=== PATIENT | female | born 1980 | race Caucasian/White ===

== ENCOUNTER 2017-02-26 14:06 | Emergency (ER) | payer MEDICAID ==
[~2017-02-26] VITALS: Ht 162.6 cm; Wt 71.2 kg
[2017-02-26 14:16] VITALS: BP 122/87
[2017-02-26] MEDS ORDERED: Dexamethasone 4mg/ml vial IM ONE (15:00)
[2017-02-26] MEDS ORDERED: Acetaminophen 500mg (ES) tab ORAL ONE (15:00)
[2017-02-26] MEDS ORDERED: AMOXICILLIN500 MG ORAL (15:10)
[2017-02-26] MEDS ORDERED: TYLENOL EXTRA500 MG ORAL (15:10)
[2017-02-26 15:15] VITALS: BP 121/86
--- NOTE | 2017-02-26 16:21 | Emergency Room Report ---
History of Present Illness General Chief Complaint: Fever Source: Patient Present Illness HPI 36-year-old female presents ED for evaluation. States that she's been having coughing chills sore throat for last 2 days. Patient has temperature 100.9 in triage. States pain is throbbing, 4/10, nonradiating. States cough is dry. Denies chest pain or shortness of breath. Denies sick contacts or recent travel. No other aggravating relieving factors. Denies any other associated symptoms Allergies: Coded Allergies: No Known Allergies (Unverified , 02/26/17) Patient History Past Medical History: none Past Surgical History: none Pertinent Family History: none Social History: Denies: smoking, alcohol use, drug use Last Menstrual Period: Current Now: No Immunizations: UTD Reviewed Nursing Documentation: PMH: Agreed, PSxH: Agreed Nursing Documentation-PMH Past Medical History: No Stated History Review of Systems All Other Systems: negative except mentioned in HPI Physical Exam Vital Signs Date Time Temp Pulse Resp B/P (MAP) Pulse Ox O2 Delivery O2 Flow Rate FiO2 02/26/17 14:16 100.9 118 22 122/87 97 Room Air Sp02 EP Interpretation: reviewed, normal General Appearance: no apparent distress, alert, GCS 15, non-toxic Head: normocephalic, atraumatic Eyes: bilateral eye normal inspection, bilateral eye PERRL ENT: hearing grossly normal, no angioedema, normal voice, TMs + canals normal, pharyngeal erythema Neck: full range of motion, supple/symm/no masses Respiratory: chest non-tender, lungs clear, normal breath sounds, speaking full sentences Cardiovascular #1: regular rate, rhythm, no edema Cardiovascular #2: 2+ carotid (R), 2+ carotid (L), 2+ radial (R), 2+ radial (L) , 2+ dorsalis pedis (R), 2+ dorsalis pedis (L) Gastrointestinal: normal bowel sounds, non tender, soft, non-distended, no guarding, no rebound Rectal: deferred Genitourinary: normal inspection, no CVA tenderness Musculoskeletal: back normal, gait/station normal, normal range of motion, non- tender Neurologic: alert, oriented x3, responsive, motor strength/tone normal, sensory intact, speech normal Psychiatric: judgement/insight normal, memory normal, mood/affect normal, no suicidal/homicidal ideation Reflexes: 3+ bicep (R), 3+ bicep (L), 3+ tricep (R), 3+ tricep (L), 3+ knee (R) , 3+ knee (L) Skin: normal color, no rash, warm/dry, well hydrated Lymphatic: no adenopathy Medical Decision Making Diagnostic Impression: Primary Impression: Pharyngitis Qualified Codes: J02.9 - Acute pharyngitis, unspecified ER Course Hospital Course 36-year-old female presents to ED complaining of sore throat + fever + cough Differential diagnoses include: URI, pharyngitis, otitis media Clinical course Patient placed on stretcher. After initial history, physical exam reveals female in no acute distress. Bilateral TM unremarkable. There is pharyngeal erythema w/o tonsillar exudates. No lymphadenopathy. Clinical findings consistent with pharyngitis. given tylenol and decadron in ED Diagnosis - pharyngitis Stable and discharged home with prescriptions for Tylenol, amoxicillin. Instructed to followup with PMD. return to ED if symptoms recur or worsen Last Vital Signs Date Time Temp Pulse Resp B/P (MAP) Pulse Ox O2 Delivery O2 Flow Rate FiO2 02/26/17 15:18 99.1 98 20 121/86 97 Room Air Status: improved Disposition: HOME, SELF-CARE Condition: Stable Scripts Acetaminophen* (TYLENOL EXTRA STRENGTH*) 500 Mg Tablet 500 MG ORAL Q8H Y for Prn Headache/Temp > 101, #30 TAB 0 Refills Prov: KAREN GARVEY M.D. 02/26/17 Amoxicillin* (AMOXIL*) 500 Mg Capsule 500 MG ORAL THREE TIMES A DAY, #21 CAP Prov: KAREN GARVEY M.D. 02/26/17 Referrals: [facility],REFERRING (PCP) Patient Instructions: Pharyngitis, [id number] KAREN GARVEY M.D. Feb 26, 2017 16:21
== END 2017-02-26 15:15 | disposition home or self-care (01) ==
LOC: EMR 14:30
DX: J02.9 Acute pharyngitis, unspecified (principal)
CPT/HCPCS: 96372; 99284; J1100

== ENCOUNTER 2017-02-28 08:16 | Emergency (ER) | payer MEDICAID ==
[~2017-02-28] VITALS: Ht 162.6 cm; Wt 70.8 kg
[~2017-02-28 08:16] MED LIST: AMOXICILLIN500 MG ORAL; TYLENOL EXTRA500 MG ORAL
[2017-02-28] MEDS ORDERED: TESSALON PERLE100 MG ORAL (08:44)
[2017-02-28] MEDS ORDERED: IBUPROFEN600 MG ORAL (08:44)
--- NOTE | 2017-02-28 08:49 | Emergency Room Report ---
History of Present Illness General Chief Complaint: Upper Respiratory Illness Source: Patient Present Illness HPI 36-year-old female with no significant past medical history p/w cough, runny nose for 5 days. Pt states cough is productive, with clear non bloody sputum. + fever no chills. +runny nose +myalgias. No sick contacts or recent travel. Patient does not smoke. Patient states that she still been able to eat and drink without any issue Patient was given amoxicillin by her doctor 3 days ago and patient states that it is not helping her cough Allergies: Coded Allergies: No Known Allergies (Unverified , 02/26/17) Patient History Past Medical History: see triage record Past Surgical History: none Pertinent Family History: none Last Menstrual Period: -24 Now: No Reviewed Nursing Documentation: PMH: Agreed, PSxH: Agreed Nursing Documentation-PMH Past Medical History: No Stated History Review of Systems All Other Systems: negative except mentioned in HPI Physical Exam Vital Signs Date Time Temp Pulse Resp B/P (MAP) Pulse Ox O2 Delivery O2 Flow Rate FiO2 02/28/17 08:26 98.4 98 20 113/81 97 Room Air Sp02 EP Interpretation: reviewed, normal General Appearance: alert, GCS 15, non-toxic, mild distress, other - Appears tired, however not short of breath, speaking in complete sentences without any issue Head: normocephalic, atraumatic Eyes: bilateral eye normal inspection, bilateral eye PERRL, bilateral eye EOMI ENT: normal ENT inspection, normal pharynx, normal voice, moist mucus membranes Neck: normal inspection, full range of motion, supple Respiratory: normal inspection, lungs clear, normal breath sounds, no respiratory distress, no retraction, no wheezing, speaking full sentences, chest symmetrical Cardiovascular #1: normal inspection, regular rate, rhythm, no edema, normal capillary refill Cardiovascular #2: 2+ radial (R), 2+ radial (L) Gastrointestinal: normal inspection, non tender, soft, non-distended, no guarding Musculoskeletal: normal inspection, back normal, normal range of motion, non- tender Neurologic: normal inspection, alert, oriented x3, responsive, motor strength/ tone normal, sensory intact, normal gait, speech normal Psychiatric: normal inspection, judgement/insight normal, memory normal Skin: normal inspection, normal color, no rash, warm/dry, well hydrated, normal turgor Medical Decision Making Diagnostic Impression: Primary Impression: Upper respiratory infection ER Course 36-year-old female p/w cough and runny nose for 5 days. DDX: Viral URI Plan: None in the emergency room, patient appears well-hydrated, vital signs are normal, lung exam is benign, and patient is not in respiratory distress ER course: Patient remains nontoxic, not in resp distress. Disposition: Patient is to be discharged home with a prescription of Tessalon Perles and Motrin. Patient instructed to continue to take the antibiotic that was prescribed by her doctor. Strict precautions discussed with patient on when to return to the emergency room including hemoptysis, high fevers, chills, SOB, chest pain which may indicate severe illness. Patient is to follow up with their primary care doctor within 5 days. Patient agrees with plan. Please note that this Emergency Department Report was dictated using [employer] technology software, occasionally this can lead to erroneous entry secondary to interpretation by the dictation equipment Last Vital Signs Date Time Temp Pulse Resp B/P (MAP) Pulse Ox O2 Delivery O2 Flow Rate FiO2 02/28/17 08:26 98.4 98 20 113/81 97 Room Air Disposition: HOME, SELF-CARE Condition: Stable Scripts Ibuprofen* (MOTRIN*) 600 Mg Tablet 600 MG ORAL Q8H Y for For Pain, #30 TAB 0 Refills Prov: Aster Hdez M.D. 02/28/17 Benzonatate* (TESSALON PERLE*) 100 Mg Capsule 100 MG ORAL THREE TIMES A DAY for 7 Days, #21 PERLE 0 Refills Prov: Aster Hdez M.D. 02/28/17 Patient Instructions: Upper Respiratory Infection, Adult Additional Instructions: please follow up with your doctor in 1 week Aster Hdez M.D. Feb 28, 2017 08:49
[2017-02-28 08:58] VITALS: BP 117/75
[2017-02-28 09:47] VITALS: BP 117/75
== END 2017-02-28 09:47 | disposition home or self-care (01) ==
LOC: EMR 08:51
DX: J06.9 Acute upper respiratory infection, unspecified (principal)
CPT/HCPCS: 99284

== ENCOUNTER 2017-09-03 06:32 | Emergency (ER) | payer MEDICAID ==
[~2017-09-03] VITALS: Ht 162.6 cm; Wt 73.9 kg
[~2017-09-03 06:32] MED LIST changes: +IBUPROFEN600 MG ORAL; +TESSALON PERLE100 MG ORAL
[2017-09-03] MEDS ORDERED: GABAPENTIN100 MG ORAL (06:42)
[2017-09-03 06:52] VITALS: BP 123/86
--- NOTE | 2017-09-03 06:54 | Emergency Room Report ---
History of Present Illness General Chief Complaint: Headache Source: Patient Present Illness HPI Patient is a 37-year-old female presented after increased headache. Patient reports having increased frequency of headaches. Patient reports having some associated throbbing sensation. She reports having pain to the left side of her head and unilaterally. She denies prior radiographic imaging. She denies any neck pain or stiffness. Patient gradual onset of headache.The patient denies being . Allergies: Coded Allergies: No Known Allergies (Unverified , 09/03/17) Patient History Past Medical History: see triage record Last Menstrual Period: 08/16/17 Now: No Reviewed Nursing Documentation: PMH: Agreed; PSxH: Agreed Nursing Documentation-PMH Past Medical History: No Stated History Review of Systems All Other Systems: negative except mentioned in HPI Physical Exam Vital Signs Date Time Temp Pulse Resp B/P (MAP) Pulse Ox O2 Delivery O2 Flow Rate FiO2 09/03/17 06:37 98.0 70 16 123/86 95 Room Air 98.1 Sp02 EP Interpretation: reviewed, normal General Appearance: normal inspection, well appearing, no apparent distress, alert, GCS 15, non-toxic Head: normocephalic, atraumatic ENT: normal ENT inspection, hearing grossly normal, normal voice Neck: normal inspection, full range of motion, supple, no bony tend Respiratory: normal inspection, lungs clear, normal breath sounds, no respiratory distress, no retraction, no wheezing Cardiovascular #1: regular rate, rhythm, no edema Gastrointestinal: normal inspection, normal bowel sounds, non tender, soft, no guarding, no hernia Genitourinary: no CVA tenderness Musculoskeletal: normal inspection, back normal, normal range of motion Neurologic: normal inspection, alert, oriented x3, responsive, automotive service cashier III-XII nml as tested, motor strength/tone normal, speech normal Psychiatric: normal inspection, judgement/insight normal, mood/affect normal Skin: normal inspection, normal color, no rash Medical Decision Making Diagnostic Impression: Primary Impression: Headache ER Course Patient presented for headache. Differential diagnoses included but was not limited to skull fracture, subarachnoid hemorrhage, meningitis, aneurysm, mass lesion, intracranial hemorrhage.Because of complexity of patient's case laboratory testing and imaging studies were ordered. CT imaging of the head read by radiology showed no evidence of acute hemorrhage or CVA. The patient was given medications for headache with improvement. Urine test status was negative. Patient was given prescription for medications. Patient was advised outpatient neurology follow-up. Patient was advised to return if she began having worsening headache persistent vomiting or other concerns. Labs Test 09/03/17 07:46 Urine Color Pale yellow Urine Appearance Clear Urine pH 8 (4.5-8.0) Urine Specific [place] 1.010 (1.005-1.035) Urine Protein Negative (NEGATIVE) Urine Glucose (UA) Negative (NEGATIVE) Urine Ketones Negative (NEGATIVE) Urine Occult Blood Negative (NEGATIVE) Urine Nitrite Negative (NEGATIVE) Urine Bilirubin Negative (NEGATIVE) Urine Urobilinogen Normal MG/DL (0.0-1.0) Urine Leukocyte Esterase 1+ (NEGATIVE) Urine RBC 0-2 /HPF (0 - 2) Urine WBC 0-2 /HPF (0 - 2) Urine Squamous Epithelial Cells Few /LPF (NONE/OCC) Urine Bacteria Occasional /HPF (NONE) Urine HCG, Qualitative Negative (NEGATIVE) Last Vital Signs Date Time Temp Pulse Resp B/P (MAP) Pulse Ox O2 Delivery O2 Flow Rate FiO2 09/03/17 06:37 98.0 70 16 123/86 95 Room Air 98.1 Status: improved Disposition: HOME, SELF-CARE Condition: Stable Scripts Isomethepten/Caf/Acetaminophen ([id number]) 1 Each Tablet 1 EACH PO EVERY 8 HOURS for headache, #10 TAB Prov: Saleem Kim MD 09/03/17 Saleem Kim MD Sep 03, 2017 06:54
[2017-09-03] MEDS ORDERED: Sodium Chloride 500ML 500 ML IV ONE (07:00)
[2017-09-03] MEDS ORDERED: Ketorolac 30mg Inj IV ONE (07:00)
--- NOTE | 2017-09-03 08:05 | Diagnostic Imaging Report ---
EXAM: CT Head Without Intravenous Contrast CLINICAL HISTORY: Headache TECHNIQUE: Axial computed tomography images of the head/brain without intravenous contrast. CTDI is 70.53 mGy and DLP is 1369 mGy-cm. One or more of the following dose reduction techniques were used: automated exposure control, adjustment of the mA and/or kV according to patient size, use of iterative reconstruction technique. Coronal reformatted images were created and reviewed. COMPARISON: No relevant prior studies available. FINDINGS: Brain: Unremarkable. No mass effect, hemorrhage, large extra-axial collection, or CT evidence of acute cortical infarction. Ventricles: Unremarkable. No midline shift or ventriculomegaly. Bones/joints: No depressed calvarial fracture. Soft tissues: Unremarkable. Sinuses: Trace left maxillary sinus mucosal thickening. No fluid level in the visualized paranasal sinuses. Mastoid air cells: Visualized mastoid air cells are clear. IMPRESSION: 1. No CT evidence of acute intracranial process. 2. No mastoid effusion or paranasal sinus air-fluid level in the visualized segments. 3. No depressed calvarial fracture.
[2017-09-03] MEDS ORDERED: [UNRECOGNIZED DRUG - OTHER] PO (08:16)
[2017-09-03 08:23] LABS: APPEARANCE,URINE CLEAR; BILIRUBIN, URINE NEGATIVE (NEGATIVE); COLOR,URINE PALE YELLOW; GLUCOSE, URINE (UA) NEGATIVE (NEGATIVE); KETONES,URINE NEGATIVE (NEGATIVE); LEUKOCYTE ESTERASE ,URINE 1+ (NEGATIVE); NITRITE,URINE NEGATIVE (NEGATIVE); PH,URINE 8 (4.5-8.0); PROTEIN,URINE NEGATIVE (NEGATIVE); UROBILINOGEN,URINE NORMAL MG/DL (0.0-1.0)
[2017-09-03 08:25] VITALS: BP 123/86
== END 2017-09-03 08:30 | disposition home or self-care (01) ==
LOC: EMR 08:30
DX: R51 Headache (principal)
CPT/HCPCS: 70450; 81003; 81025; 96374; 96375; 99284; J0780; J1885; J7040

== ENCOUNTER 2018-04-11 09:31 | Emergency (ER) | payer MEDICAID ==
[~2018-04-11] VITALS: Ht 160 cm; Wt 72.6 kg
[~2018-04-11 09:31] MED LIST changes: +GABAPENTIN100 MG ORAL; +[UNRECOGNIZED DRUG - OTHER] PO
[2018-04-11 09:40] VITALS: BP 122/84
--- NOTE | 2018-04-11 09:40 | NUR ---
ED Nurse Note: PT WALKED IN TO ER TODAY FROM HOME. AOX4. PT C/O LOWER ABDOMINAL, 8/10 X 1 WEEK THAT WORSENS AT NIGHT. PT ALSO C/O INCREASED URINARY URGE AND FREQUENCY. PT DENIES ANY BLEEDING OR DISCHARGE.
[2018-04-11 10:33] LABS: APPEARANCE,URINE CLEAR; BILIRUBIN, URINE NEGATIVE (NEGATIVE); COLOR,URINE PALE YELLOW; GLUCOSE, URINE (UA) NEGATIVE (NEGATIVE); KETONES,URINE NEGATIVE (NEGATIVE); LEUKOCYTE ESTERASE ,URINE NEGATIVE (NEGATIVE); NITRITE,URINE NEGATIVE (NEGATIVE); PH,URINE 6 (4.5-8.0); PROTEIN,URINE NEGATIVE (NEGATIVE); UROBILINOGEN,URINE NORMAL MG/DL (0.0-1.0)
--- NOTE | 2018-04-11 11:24 | NUR ---
ED Nurse Note: US CALLED. NO ANSWER.
--- NOTE | 2018-04-11 12:55 | Emergency Room Report ---
History of Present Illness General Chief Complaint: Female Urogenital Problems Source: Patient Present Illness HPI This patient states that she is noted for the month that she has had chronic pain in her pelvis area. She states sometimes she has pain with intercourse. She also states she has had several episodes of urinary tract infections. She had been on antibiotics for this. She states that her symptoms continue and even after the antibiotic she still continues to have cramping and pain in her wrist. She has seen her primary care physician but states she has not undergone any further testing. She is not currently on her menses and states that her period is irregular. Denies abnormal vaginal discharge. She denies risk of STD. She has no other complaints. Allergies: Coded Allergies: No Known Allergies (Unverified , 09/03/17) Patient History Past Medical History: see triage record Social History: Denies: smoking, alcohol use, drug use Last Menstrual Period: 03/23/18 Now: No Reviewed Nursing Documentation: PMH: Agreed; PSxH: Agreed Nursing Documentation-PMH Past Medical History: No Stated History Review of Systems All Other Systems: negative except mentioned in HPI Physical Exam Vital Signs Date Time Temp Pulse Resp B/P (MAP) Pulse Ox O2 Delivery O2 Flow Rate FiO2 04/11/18 09:36 98.8 66 20 116/82 99 Room Air Sp02 EP Interpretation: reviewed, normal General Appearance: no apparent distress, alert, GCS 15, non-toxic Head: normocephalic, atraumatic Eyes: bilateral eye normal inspection, bilateral eye PERRL ENT: hearing grossly normal, normal pharynx, no angioedema, normal voice Neck: full range of motion, supple/symm/no masses Respiratory: no respiratory distress, no retraction, no accessory muscle use, speaking full sentences Cardiovascular #1: regular rate, rhythm, no edema Gastrointestinal: normal bowel sounds, soft, non-distended, no guarding, no rebound, tenderness - Mild ttp pelvis Rectal: deferred Musculoskeletal: back normal, gait/station normal, normal range of motion, calf tenderness Neurologic: alert, oriented x3, responsive, motor strength/tone normal, sensory intact, speech normal Psychiatric: judgement/insight normal, memory normal, mood/affect normal, no suicidal/homicidal ideation Skin: normal color, no rash, warm/dry, well hydrated Medical Decision Making Diagnostic Impression: Primary Impression: Uterine fibroid ER Course She presented with 1 month of pelvic pain. She underwent ultrasound of the pelvis and this did show a uterine fibroid. Possibly this is the etiology of the patient's pain. She is low risk for STD and has no abnormal discharge I did not pursue this any further. The patient's urinalysis was negative. The patient's abdominal exam is benign and I do not feel that there is an underlying appendicitis or emergency pelvic or abdominal condition. Therefore, I did not obtain a CT of the abdomen and pelvis. Overall, the patient's evaluation was benign. The patient was instructed to follow-up closely with her primary care physician and a social media content manager. She indicated understanding intention to do so. Laboratory Tests Test 04/11/18 09:44 Urine Color Pale yellow Urine Appearance Clear Urine pH 6 (4.5-8.0) Urine Specific [place] 1.010 (1.005-1.035) Urine Protein Negative (NEGATIVE) Urine Glucose (UA) Negative (NEGATIVE) Urine Ketones Negative (NEGATIVE) Urine Blood Negative (NEGATIVE) Urine Nitrite Negative (NEGATIVE) Urine Bilirubin Negative (NEGATIVE) Urine Urobilinogen Normal MG/DL (0.0-1.0) Urine Leukocyte Esterase Negative (NEGATIVE) Urine HCG, Qualitative Negative (NEGATIVE) CT/MRI/US Diagnostic Results CT/MRI/US Diagnostic Results : Imaging Test Ordered: US Pelvis Impression Multiple uterine fibroids. Please see official report. Last Vital Signs Date Time Temp Pulse Resp B/P (MAP) Pulse Ox O2 Delivery O2 Flow Rate FiO2 04/11/18 09:40 98.6 64 18 122/84 98 Room Air Status: improved Disposition: HOME, SELF-CARE Condition: Improved Referrals: [facility],REFERRING (PCP) Verito Suero DO Apr 11, 2018 12:55
--- NOTE | 2018-04-11 13:50 | Diagnostic Imaging Report ---
Indication:Lower abdominal and pelvic pain Technique: Grayscale and duplex Doppler imaging of the pelvis performed utilizing a transabdominal and endovaginal scan. Comparison: None Findings: There is a hypoechoic, posterior uterine fundal region mass consistent with a fibroid measuring about 4 x 3 cm. The uterus is retroverted. Endometrial stripe is about 9 to 10 mm and appears uniformly echogenic. Other smaller lesions some with shadowing indicative of calcification noted in the uterus consistent with additional smaller fibroids. Both ovaries are identified and appear normal with dopplerable blood flow. The uterus measures 7.8 x 6.4 x 5.7 cm. The right ovary measures 2.7 x 1.8 x 2.4 cm. The left ovary measures 3.2 x 1.6 x 2.8 cm. IMPRESSION: Multiple uterine fibroids as described above.
[2018-04-11] MEDS ORDERED: IBUPROFEN800 MG ORAL (14:09)
[2018-04-11 14:28] VITALS: BP 120/80
[2018-04-11 14:29] VITALS: BP 122/84
--- NOTE | 2018-04-11 14:31 | NUR ---
discharged home with instruction and rx follow up with pmd
== END 2018-04-11 14:30 | disposition home or self-care (01) ==
LOC: EMR 10:35
DX: D25.9 Leiomyoma of uterus, unspecified (principal)
CPT/HCPCS: 76830; 76856; 81003; 81025; 99284

== ENCOUNTER 2020-05-01 10:03 | Emergency (ER) | payer MEDICAID ==
[~2020-05-01] VITALS: Ht 160 cm; Wt 74.8 kg
[~2020-05-01 10:03] MED LIST changes: +IBUPROFEN800 MG ORAL
--- NOTE | 2020-05-01 10:32 | NUR ---
ED Nurse Note: urine obtained and sent.
--- NOTE | 2020-05-01 10:45 | Emergency Room Report ---
History of Present Illness General Chief Complaint: Female Urogenital Problems Source: Patient Present Illness HPI Disclaimer: Please note that this report is being documented using [employer] technology. This can lead to erroneous entry secondary to incorrect interpretation by the dictating instrument. HPI: 39-year-old female no reported medical history presents for evaluation of flank pain and dysuria. Patient reports 2 months intermittent left-sided flank pain that radiates down the left side and sometimes into the lower pelvis. She states she had an ultrasound 2 months ago by her PMD showing no stones and otherwise unremarkable. For the past few days she has had dysuria and pink color to her urine. Reports frequency and urgency as well. Denies nausea, vomiting, fever, chills, diarrhea, vaginal bleeding. LMP 1 week ago. No prior history of surgical procedures in the abdomen. Able to eat and drink at [email or web address]. Sometimes the pain is relieved by drinking warm teas. No obvious exacerbating factors though seem to flareup at night. 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 EOMI. Cardiovascular: RRR. S1 and S2 normal. No murmur appreciated Resp: Normal work of breathing. No cough, wheezing or crackles appreciated Abdomen: Abdomen is soft, nondistended. Nontender. Positive left-sided CVA tenderness. No guarding. No rebound. Skin: Intact. No abrasions, laceration or rash over the exposed skin MSK: Normal tone and bulk. Moving all extremities. No obvious deformity. Neuro: Awake and alert. Mentating appropriately. Medical Decision Making Diagnostic Impression: Primary Impression: Pyelonephritis ER Course Is a 39-year-old female presenting for evaluation of 2 days of dysuria and 2 m onths of intermittent flank pain. Differential includes was not limited to gastritis, gastroenteritis, pancreatitis, cholecystitis, nephrolithiasis, biliary colic, renal colic, UTI, pyelonephritis, pancreatic mass among others. Unable to perform CT at this time as our CT scanner is currently unavailable, down for maintenance. Ultrasound was performed and returned unremarkable. No evidence of mass, no hydronephrosis, no significant abnormalities identified on preliminary read by electroencephalographic technician. Labs have returned within normal limits. There are white cells and positive inflammatory markers in the urine with few bacteria. Will send for culture and sensitivity studies of patient will be start empirically on ciprofloxacin treatment of presumed urinary tract infection likely pyelonephritis. She will continue follow-up with her PMD to continue work-up on this persistent left-sided flank pain. Instructed to return new or worsening symptoms. She understands and agrees with the treatment plan. Laboratory Tests Test 05/01/20 10:35 05/01/20 10:50 Urine Color Yellow Urine Appearance Slightly cloudy Urine pH 5 (4.5-8.0) Urine Specific [place] 1.020 (1.005-1.035) Urine Protein Negative (NEGATIVE) Urine Glucose (UA) Negative (NEGATIVE) Urine Ketones 1+ (NEGATIVE) H Urine Blood 2+ (NEGATIVE) H Urine Nitrite Negative (NEGATIVE) Urine Bilirubin Negative (NEGATIVE) Urine Urobilinogen Normal MG/DL (0.0-1.0) Urine Leukocyte Esterase 1+ (NEGATIVE) H Urine RBC 15-20 /HPF (0 - 2) H Urine WBC 5-10 /HPF (0 - 2) H Urine Squamous Epithelial Cells Many /LPF (NONE/OCC) H Urine Bacteria Few /HPF (NONE) Urine HCG, Qualitative Negative (NEGATIVE) White Blood Count 5.5 K/UL (4.8-10.8) Red Blood Count 5.49 M/UL (4.20-5.40) H Hemoglobin 13.7 G/DL (12.0-16.0) Hematocrit 43.9 % (37.0-47.0) Mean Corpuscular Volume 80 FL (80-99) Mean Corpuscular Hemoglobin 24.9 PG (27.0-31.0) L Mean Corpuscular Hemoglobin Concent 31.2 G/DL (32.0-36.0) L Red Cell Distribution Width 13.8 % (11.6-14.8) Platelet Count 278 K/UL (150-450) Mean Platelet Volume 8.0 FL (6.5-10.1) Neutrophils (%) (Auto) 58.2 % (45.0-75.0) Lymphocytes (%) (Auto) 32.2 % (20.0-45.0) Monocytes (%) (Auto) 8.1 % (1.0-10.0) Eosinophils (%) (Auto) 0.8 % (0.0-3.0) Basophils (%) (Auto) 0.8 % (0.0-2.0) Sodium Level 140 MMOL/L (136-145) Potassium Level 4.4 MMOL/L (3.5-5.1) Chloride Level 104 MMOL/L (98-107) Carbon Dioxide Level 29 MMOL/L (21-32) Anion Gap 7 mmol/L (5-15) Blood Urea Nitrogen 8 mg/dL (7-18) Creatinine 0.8 MG/DL (0.55-1.30) Estimated Glomerular Filtration Rate > 60 mL/min (>60) Glucose Level 93 MG/DL (74-106) Calcium Level 9.4 MG/DL (8.5-10.1) Total Bilirubin 0.4 MG/DL (0.2-1.0) Aspartate Amino Transferase (AST) 7 U/L (15-37) L Alanine Aminotransferase (ALT) 13 U/L (12-78) Alkaline Phosphatase 74 U/L (46-116) Total Protein 8.1 G/DL (6.4-8.2) Albumin 3.7 G/DL (3.4-5.0) Globulin 4.4 g/dL Albumin/Globulin Ratio 0.8 (1.0-2.7) L Lipase 113 U/L (73-393) Last Vital Signs Date Time Temp Pulse Resp B/P (MAP) Pulse Ox O2 Delivery O2 Flow Rate FiO2 05/01/20 10:32 98.2 76 18 127/83 (98) 98 Room Air Disposition: HOME, SELF-CARE Condition: Stable Scripts Ciprofloxacin Hcl* (CIPROFLOXACIN HCL*) 500 Mg Tablet 500 MG ORAL Q12H for 7 Days, #14 TAB 0 Refills Prov: Osiel Granados MD 05/01/20 Osiel Granados MD May 01, 2020 10:45
--- NOTE | 2020-05-01 10:47 | NUR ---
ED Nurse Note: US aware to do study
[2020-05-01 10:53] LABS: APPEARANCE,URINE SLIGHTLY CLOUDY; BILIRUBIN, URINE NEGATIVE (NEGATIVE); GLUCOSE, URINE (UA) NEGATIVE (NEGATIVE); KETONES,URINE 1+ (NEGATIVE); LEUKOCYTE ESTERASE ,URINE 1+ (NEGATIVE); NITRITE,URINE NEGATIVE (NEGATIVE); PH,URINE 5 (4.5-8.0); PROTEIN,URINE NEGATIVE (NEGATIVE); UROBILINOGEN,URINE NORMAL MG/DL (0.0-1.0)
[2020-05-01 10:59] VITALS: BP 125/81
[2020-05-01 11:05] LABS: COLOR,URINE YELLOW
--- NOTE | 2020-05-01 11:13 | NUR ---
pt in bed. on monitor. pt stable. denies need for pain medication. labwork sent. waiting for US.
[2020-05-01 11:27] LABS: BASOPHILS % (AUTO) 0.8 % (0.0-2.0); EOSINOPHILS % (AUTO) 0.8 % (0.0-3.0); HEMATOCRIT 43.9 % (37.0-47.0); HEMOGLOBIN 13.7 G/DL (12.0-16.0); LYMPHOCYTES % (AUTO) 32.2 % (20.0-45.0); MEAN CORPUSCULAR VOLUME 80 FL (80-99); MONOCYTES % (AUTO) 8.1 % (1.0-10.0); NEUTROPHILS % (AUTO) 58.2 % (45.0-75.0); PLATELET COUNT 278 K/UL (150-450); RED BLOOD COUNT 5.49 M/UL (4.20-5.40); RED CELL DISTRIBUTION WIDTH 13.8 % (11.6-14.8); WHITE BLOOD COUNT 5.5 K/UL (4.8-10.8)
[2020-05-01 12:00] LABS: ANION GAP 7 mmol/L (5-15); BLOOD UREA NITROGEN 8 mg/dL (7-18); CALCIUM 9.4 MG/DL (8.5-10.1); CARBON DIOXIDE 29 MMOL/L (21-32); CHLORIDE 104 MMOL/L (98-107); CREATININE 0.8 MG/DL (0.55-1.30); POTASSIUM 4.4 MMOL/L (3.5-5.1); SODIUM 140 MMOL/L (136-145)
[2020-05-01] MEDS ORDERED: Morphine Sulfate 2mg/ml Inj(IV/IM USE ONLY) IVP ONE (12:00)
[2020-05-01 12:03] LABS: ALANINE AMINOTRANSFERASE 13 U/L (12-78); ALBUMIN 3.7 G/DL (3.4-5.0); ALBUMIN/GLOBULIN RATIO 0.8 (1.0-2.7); ALKALINE PHOSPHATASE 74 U/L (46-116); ASPARTATE AMINO TRANSFERASE 7 U/L (15-37); BILIRUBIN,TOTAL 0.4 MG/DL (0.2-1.0)
--- NOTE | 2020-05-01 12:20 | NUR ---
pt refusing morphine ordered. pt requesting other pain medication. informed.
[2020-05-01] MEDS ORDERED: CIPROFLOXACIN500 M2 ORAL (12:26)
[2020-05-01] MEDS ORDERED: Ketorolac 30mg Inj IV ONE (12:30)
[2020-05-01 12:36] VITALS: BP 125/77
[2020-05-01 12:52] VITALS: BP 111/69
--- NOTE | 2020-05-01 12:54 | NUR ---
ER DISCHARGE NOTE: Patient is cleared to be discharged per ERMD, pt is aox4, on room air, with stable vital signs. pt was given dc and prescription instructions, pt was able to verbalize understanding, pt id band and iv site removed without complications. pt is able to ambulate with steady gait. pt took all belongings.
--- NOTE | 2020-05-01 13:41 | Diagnostic Imaging Report ---
EXAM: ULTRASOUND US ABD Complete CLINICAL HISTORY: Reason For Exam: ABD PAIN. COMPARISON: None TECHNIQUE: Ultrasound examination of the abdomen includes grayscale images, and color and spectral doppler analysis. FINDINGS: The liver and spleen are homogeneous. The gallbladder is without sludge or stone. Common bile duct measures 3 mm. The pancreas is unremarkable to the extent visualized. The kidneys are normal in size, shape and axis. Aorta and cava are partially obscured. IMPRESSION: NO SIGN OF ACUTE DISEASE TO THE EXTENT VISUALIZED.
== END 2020-05-01 12:55 | disposition home or self-care (01) ==
LOC: EMR 10:40
DX: N12 Tubulo-interstitial nephritis, not specified as acute or chronic (principal)
CPT/HCPCS: 36415; 76700; 80053; 81003; 81025; 83690; 85025; 96374; J1885; Z7502; 99284